=== PATIENT | male | born 1930 | race Caucasian/White ===

== ENCOUNTER 2017-07-27 14:09 | Emergency (ER) | payer OTHER ==
[~2017-07-27] VITALS: Ht 170.2 cm; Wt 109.1 kg
[~2017-07-27 14:09] MED LIST: ACET-75 PO; AMLO5TAB PO; ASPI-611 PO; AZELASTINE NS; CHOL10002 PO; METO25TA6 PO; NAPR375T5 PO; NITR0.4T48 SL; OMEP20CA10 PO; POTA8TAB8 PO; VALS80TA2 PO
[2017-07-27] MEDS ORDERED: ondansetron 4mg rapidly disintigrating tab PO ONE (16:35)
[2017-07-27] MEDS ORDERED: acetaminophen 325mg tablet PO ONE (16:40)
[2017-07-27] MEDS ORDERED: ONDA8TAB9 PO (16:41)
[2017-07-27 17:32] VITALS: BP 143/66
== END 2017-07-27 17:35 | disposition home or self-care (01) ==
LOC: ER 14:11
DX: J11.1 Influenza due to unidentified influenza virus with other respiratory manifestations (principal); I10 Essential (primary) hypertension; Z98.890 Other specified postprocedural states; Z79.82 Long term (current) use of aspirin; Z79.899 Other long term (current) drug therapy; Z88.0 Allergy status to penicillin; Z88.5 Allergy status to narcotic agent
CPT/HCPCS: 87502; 87503; 99284

== ENCOUNTER 2018-05-06 21:16 | Inpatient (IN) | payer OTHER ==
[~2018-05-06] VITALS: Ht 172.7 cm; Wt 94.1 kg
[~2018-05-06 21:16] MED LIST changes: +ONDA8TAB9 PO
[2018-05-06] MEDS ORDERED: ondansetron/PF 4mg/2ml inj IV ONE (22:05)
[2018-05-06] MEDS ORDERED: morphine 4 MG/ML inj SYRINge IV ONE (22:05)
[2018-05-06] MEDS ORDERED: normal saline 1000ML IV soln IVB ONE (22:05)
[2018-05-06] MEDS ORDERED: morphine 2 MG/ML inj. syringe IV PRN (22:05)
[2018-05-06 22:39] LABS: BASOPHILS % (AUTO) 0.1 % (0-1); EOSINOPHILS # (AUTO) 0.1 X10'3 (0-0.9); EOSINOPHILS % (AUTO) 0.7 % (0-6); HEMOGLOBIN 14.4 g/dl (14.0-17.9); LYMPHOCYTES # (AUTO) 1.9 X10'3 (1.1-4.8); LYMPHOCYTES % (AUTO) 10.9 % (21-51); MEAN CORPUSCULAR HEMOGLOBIN 30.2 PG (27.0-31.0); MEAN CORPUSCULAR HGB CONC 32.7 % (33.0-36.5); MEAN CORPUSCULAR VOLUME 92.3 FL (78-98); MONOCYTES # (AUTO) 0.4 X10'3 (0-0.9); MONOCYTES % (AUTO) 2.3 % (2-12); NEUTROPHILS # (AUTO) 14.9 X10'3 (1.8-7.7); PLATELET COUNT 217 X10'3 (140-440); RED BLOOD COUNT 4.77 X10'6 (4.70-6.10); WHITE BLOOD COUNT 17.3 X10'3 (4.5-11.0)
[2018-05-06 22:55] LABS: ALANINE AMINOTRANSFERASE 20 U/L (12-78); ALBUMIN 3.6 G/DL (3.4-5.0); ALBUMIN/GLOBULIN RATIO 1.1 (1.1-1.5); ALKALINE PHOSPHATASE 101 IU/L (46-116); ANION GAP 9 (8-16); ASPARTATE AMINO TRANSFERASE 16 U/L (10-37); BILIRUBIN,TOTAL 0.5 MG/DL (0.1-1.0); BLOOD UREA NITROGEN 17 MG/DL (7-18); BUN/CREATININE RATIO 15.2 (5.4-32.0); C-REACTIVE PROTEIN 0.22 MG/DL (0.0-0.5); CALCIUM 8.3 MG/DL (8.5-10.1); CHLORIDE 105 MMOL/L (99-107); CREATININE 1.12 MG/DL (0.60-1.10); GLUCOSE 130 MG/DL (70-104); POTASSIUM 3.8 MMOL/L (3.5-5.1); SODIUM 140 MMOL/L (135-145); TOTAL CARBON DIOXIDE 25.8 MMOL/L (24-32); TOTAL PROTEIN 6.8 G/DL (6.4-8.2); eGFR 62 ML/MIN
[2018-05-06 23:00] LABS: PROTHROMBIN TIME 10.7 SECONDS (9.0-12.0)
[2018-05-06] MEDS ORDERED: vancomycin/NS 1 GM ADD-VANTAGE 250 ML IV ONE (23:35)
[2018-05-07 00:34] LABS: CLARITY,URINE CLEAR (Clear); COLOR,URINE YELLOW (Yellow); GLUCOSE, URINE NEGATIVE (Neg); KETONES,URINE NEGATIVE (Neg); LEUKOCYTE ESTERASE ,URINE NEGATIVE (Neg); NITRITES, URINE NEGATIVE (Neg); OCCULT BLOOD,URINE TRACE-INTACT (Neg); PROTEIN,URINE NEGATIVE (Neg); UROBILINOGEN,URINE 0.2 E.U/dL (0.2-1.0)
[2018-05-07 00:39] LABS: UA COLLECTION TYPE URINAL
[2018-05-07 00:43] LABS: BACTERIA,URINE NONE SEEN /HPF (Neg); SQUAMOUS EPITHELIAL CELL,UR FEW /LPF (FEW); WBC,URINE NONE SEEN /HPF (0-4)
[2018-05-07] MEDS ORDERED: CLIN300C85 PO (01:43)
[2018-05-07] MEDS ORDERED: normal saline 1000ML IV soln IVB ONE ×2 (02:00)
[2018-05-07] MEDS ORDERED: acetaminophen 325mg tablet PO ONE (02:10)
[2018-05-07] MEDS ORDERED: PRAV80TA3 PO (02:26)
[2018-05-07] MEDS ORDERED: METO25TA6 PO (02:26)
[2018-05-07] MEDS ORDERED: mag hydrox/Alum hydrox/simeth 30ml oral suspension PO PRN (03:00)
[2018-05-07] MEDS ORDERED: magnesium 4gm in 100ml NS 100 ML IV PRN (03:00)
[2018-05-07] MEDS ORDERED: ondansetron/PF 4mg/2ml inj IV PRN (03:00)
[2018-05-07] MEDS ORDERED: morphine 2 MG/ML inj. syringe IV PRN ×2 (03:00)
[2018-05-07] MEDS ORDERED: ondansetron 4mg rapidly disintigrating tab PO PRN (03:00)
[2018-05-07] MEDS ORDERED: magnesium 1gm/100ml D5W IVPB 100 ML IV PRN (03:00)
[2018-05-07] MEDS ORDERED: docusate sod 100mg capsule PO PRN (03:00)
[2018-05-07] MEDS ORDERED: potassium Cl 40MEQ/NS 500ml 500 ML IV PRN ×2 (03:00)
[2018-05-07] MEDS ORDERED: potassium Cl 20 mEq SR tablet PO PRN (03:00)
[2018-05-07] MEDS: normal saline 1000ml 1,000 ML IV SCH ×3 (04:50→16:38)
[2018-05-07 05:42] LABS: BASOPHILS % (AUTO) 0 % (0-1); EOSINOPHILS % (AUTO) 0 % (0-6); HEMATOCRIT 39.4 % (42.0-52.0); LYMPHOCYTES # (AUTO) 0.5 X10'3 (1.1-4.8); MEAN CORPUSCULAR HEMOGLOBIN 30.2 PG (27.0-31.0); MEAN CORPUSCULAR VOLUME 91.6 FL (78-98); MEAN PLATELET VOLUME 9.7 FL (7.4-10.4); MONOCYTES # (AUTO) 1.6 X10'3 (0-0.9); MONOCYTES % (AUTO) 6.5 % (2-12); NEUTROPHILS # (AUTO) 22.4 X10'3 (1.8-7.7); NEUTROPHILS % (AUTO) 91.5 % (42-75); PLATELET COUNT 195 X10'3 (140-440); RED CELL DISTRIBUTION WIDTH 13.1 % (11.5-14.5); WHITE BLOOD COUNT 24.5 X10'3 (4.5-11.0)
[2018-05-07 05:53] LABS: CHOL/HDL RATIO 2.3 (0.00-4.99); CHOLESTEROL 108 MG/DL (0-200); HDL CHOLESTEROL 46 MG/DL (35-60); LDL CHOLESTEROL 58 MG/DL (50-100); TRIGLYCERIDES 24 MG/DL (20-135); TROPONIN I < 0.04 NG/ML (0.0-0.05)
[2018-05-07] MEDS: K and/or MAG REPLACEMENT MC SCH (08:00)
[2018-05-07 08:04] VITALS: BP 145/72
[2018-05-07] MEDS: atorvastatin 20mg tablet PO SCH (08:33)
[2018-05-07] MEDS: pantoprazole 40mg Tablet.DR PO SCH (08:34)
[2018-05-07] MEDS: vitamin D (cholecalciferol) 1,000 unit tablet PO SCH (08:34)
[2018-05-07] MEDS: losartan 50mg tablet PO SCH (08:34)
[2018-05-07] MEDS: metoprolol tartrate 25mg tablet PO SCH ×2 (08:35→19:45)
[2018-05-07] MEDS: enoxaparin 40mg/0.4ml syringe SQ SCH (08:35)
[2018-05-07 11:00] VITALS: BP 153/81
[2018-05-07] MEDS: levoFLOXACIN 750MG TABLET PO SCH (11:41)
[2018-05-07] MEDS: vancomycin inj 1,250 MG in normal saline 250ml IV soln 250 ML IV SCH ×2 (11:43→23:06)
[2018-05-07] MEDS: lactobacillus rhamnosus 10,000 MMU CELLS/CAPSULE PO SCH (19:45)
[2018-05-07 20:00] VITALS: BP 103/45
[2018-05-07] MEDS: acetaminophen 325mg tablet PO PRN (22:07)
[2018-05-08] VITALS: BP 106/51
[2018-05-08] MEDS: normal saline 1000ml 1,000 ML IV SCH ×2 (03:49→19:31)
[2018-05-08 05:34] LABS: BASOPHILS % (AUTO) 0.1 % (0-1); EOSINOPHILS % (AUTO) 0 % (0-6); HEMATOCRIT 40.5 % (42.0-52.0); HEMOGLOBIN 13.3 g/dl (14.0-17.9); LYMPHOCYTES # (AUTO) 1.8 X10'3 (1.1-4.8); LYMPHOCYTES % (AUTO) 6.4 % (21-51); MEAN CORPUSCULAR HEMOGLOBIN 30.3 PG (27.0-31.0); MEAN CORPUSCULAR HGB CONC 32.9 % (33.0-36.5); MEAN CORPUSCULAR VOLUME 92.2 FL (78-98); MEAN PLATELET VOLUME 10.3 FL (7.4-10.4); MONOCYTES # (AUTO) 1.7 X10'3 (0-0.9); MONOCYTES % (AUTO) 6.1 % (2-12); NEUTROPHILS # (AUTO) 24.6 X10'3 (1.8-7.7); NEUTROPHILS % (AUTO) 87.4 % (42-75); PLATELET COUNT 190 X10'3 (140-440); RED CELL DISTRIBUTION WIDTH 13.6 % (11.5-14.5)
[2018-05-08 05:42] LABS: WHITE BLOOD COUNT 28.2 X10'3 (4.5-11.0)
[2018-05-08 06:17] LABS: ALANINE AMINOTRANSFERASE 17 U/L (12-78); ALBUMIN 2.6 G/DL (3.4-5.0); ALBUMIN/GLOBULIN RATIO 0.8 (1.1-1.5); ALKALINE PHOSPHATASE 79 IU/L (46-116); ANION GAP 10 (8-16); ASPARTATE AMINO TRANSFERASE 43 U/L (10-37); BLOOD UREA NITROGEN 17 MG/DL (7-18); BUN/CREATININE RATIO 17.5 (5.4-32.0); CALCIUM 7.9 MG/DL (8.5-10.1); CHLORIDE 106 MMOL/L (99-107); CREATININE 0.97 MG/DL (0.60-1.10); GLUCOSE 96 MG/DL (70-104); MAGNESIUM 1.8 MG/DL (1.5-2.4); POTASSIUM 3.3 MMOL/L (3.5-5.1); SODIUM 140 MMOL/L (135-145); TOTAL CARBON DIOXIDE 23.8 MMOL/L (24-32); TOTAL PROTEIN 5.9 G/DL (6.4-8.2); eGFR 73 ML/MIN
[2018-05-08 06:24] LABS: PLATELET ESTIMATE NORMAL; TOTAL CELLS COUNTED 100
[2018-05-08 07:31] VITALS: BP 142/78
[2018-05-08] MEDS: K and/or MAG REPLACEMENT MC SCH (08:00)
[2018-05-08] MEDS: metoprolol tartrate 25mg tablet PO SCH ×2 (08:22→19:31)
[2018-05-08] MEDS: lactobacillus rhamnosus 10,000 MMU CELLS/CAPSULE PO SCH ×2 (08:22→19:31)
[2018-05-08] MEDS: enoxaparin 40mg/0.4ml syringe SQ SCH (08:22)
[2018-05-08] MEDS: pantoprazole 40mg Tablet.DR PO SCH (08:28)
[2018-05-08] MEDS: losartan 50mg tablet PO SCH (08:28)
[2018-05-08] MEDS: potassium Cl 20 mEq SR tablet PO PRN (08:33)
[2018-05-08] MEDS: atorvastatin 20mg tablet PO SCH (08:34)
[2018-05-08] MEDS: vitamin D (cholecalciferol) 1,000 unit tablet PO SCH (08:34)
[2018-05-08 10:17] VITALS: BP 144/68
[2018-05-08] MEDS: clindamycin 600mg/D5W 50ml 50 ML IV SCH ×3 (11:15→19:32)
[2018-05-08] MEDS: levoFLOXACIN 750MG TABLET PO SCH (11:16)
[2018-05-08 11:45] VITALS: BP 143/68
[2018-05-08] MEDS: vancomycin inj 1,250 MG in normal saline 250ml IV soln 250 ML IV SCH (12:42)
[2018-05-08] MEDS: CefTRIAXone 2gm/D5W 50ml 50 ML IV SCH (15:59)
[2018-05-08 20:00] VITALS: BP 127/59
[2018-05-08] MEDS: acetaminophen 325mg tablet PO PRN (20:05)
[2018-05-08] MEDS ORDERED: VANCOMYCIN LEVEL IV ONE (22:30)
[2018-05-09] VITALS: BP 107/52
[2018-05-09] MEDS: clindamycin 600mg/D5W 50ml 50 ML IV SCH ×4 (02:00→20:46)
[2018-05-09] MEDS: potassium Cl 20 mEq SR tablet PO PRN (02:02)
[2018-05-09] MEDS: normal saline 1000ml 1,000 ML IV SCH ×3 (05:31→17:43)
[2018-05-09 06:21] LABS: BASOPHILS % (AUTO) 0 % (0-1); EOSINOPHILS # (AUTO) 0.1 X10'3 (0-0.9); EOSINOPHILS % (AUTO) 0.5 % (0-6); HEMATOCRIT 37.8 % (42.0-52.0); HEMOGLOBIN 12.5 g/dl (14.0-17.9); LYMPHOCYTES # (AUTO) 1.4 X10'3 (1.1-4.8); LYMPHOCYTES % (AUTO) 6.2 % (21-51); MEAN CORPUSCULAR HEMOGLOBIN 30.3 PG (27.0-31.0); MEAN CORPUSCULAR HGB CONC 33.1 % (33.0-36.5); MEAN CORPUSCULAR VOLUME 91.6 FL (78-98); MEAN PLATELET VOLUME 10.4 FL (7.4-10.4); MONOCYTES # (AUTO) 1.4 X10'3 (0-0.9); NEUTROPHILS # (AUTO) 19.7 X10'3 (1.8-7.7); NEUTROPHILS % (AUTO) 87.3 % (42-75); PLATELET COUNT 164 X10'3 (140-440); RED BLOOD COUNT 4.12 X10'6 (4.70-6.10); RED CELL DISTRIBUTION WIDTH 13.7 % (11.5-14.5); WHITE BLOOD COUNT 22.5 X10'3 (4.5-11.0)
[2018-05-09 06:49] LABS: ALANINE AMINOTRANSFERASE 19 U/L (12-78); ALBUMIN 2.3 G/DL (3.4-5.0); ALBUMIN/GLOBULIN RATIO 0.7 (1.1-1.5); ALKALINE PHOSPHATASE 71 IU/L (46-116); ANION GAP 11 (8-16); ASPARTATE AMINO TRANSFERASE 31 U/L (10-37); BILIRUBIN,TOTAL 0.8 MG/DL (0.1-1.0); BLOOD UREA NITROGEN 18 MG/DL (7-18); BUN/CREATININE RATIO 21.2 (5.4-32.0); CHLORIDE 106 MMOL/L (99-107); CREATININE 0.85 MG/DL (0.60-1.10); GLUCOSE 105 MG/DL (70-104); MAGNESIUM 1.8 MG/DL (1.5-2.4); POTASSIUM 3.5 MMOL/L (3.5-5.1); SODIUM 140 MMOL/L (135-145); TOTAL PROTEIN 5.5 G/DL (6.4-8.2); eGFR 85 ML/MIN
[2018-05-09 07:30] VITALS: BP 119/83
[2018-05-09] MEDS: K and/or MAG REPLACEMENT MC SCH (08:00)
[2018-05-09] MEDS: CefTRIAXone 2gm/D5W 50ml 50 ML IV SCH (08:03)
[2018-05-09] MEDS: metoprolol tartrate 25mg tablet PO SCH ×2 (08:05→20:49)
[2018-05-09] MEDS: vitamin D (cholecalciferol) 1,000 unit tablet PO SCH (08:06)
[2018-05-09] MEDS: pantoprazole 40mg Tablet.DR PO SCH (08:06)
[2018-05-09] MEDS: atorvastatin 20mg tablet PO SCH (08:06)
[2018-05-09] MEDS: enoxaparin 40mg/0.4ml syringe SQ SCH (08:07)
[2018-05-09] MEDS: losartan 50mg tablet PO SCH (08:07)
[2018-05-09] MEDS: lactobacillus rhamnosus 10,000 MMU CELLS/CAPSULE PO SCH ×2 (08:07→20:49)
[2018-05-09 12:51] VITALS: BP 134/57
[2018-05-09 20:00] VITALS: BP 129/63
[2018-05-10] VITALS: BP 132/61
[2018-05-10] MEDS: clindamycin 600mg/D5W 50ml 50 ML IV SCH ×4 (01:38→20:44)
[2018-05-10] MEDS: normal saline 1000ml 1,000 ML IV SCH ×2 (04:19→14:42)
[2018-05-10 04:49] LABS: ALANINE AMINOTRANSFERASE 17 U/L (12-78); ALBUMIN/GLOBULIN RATIO 0.6 (1.1-1.5); ALKALINE PHOSPHATASE 68 IU/L (46-116); ANION GAP 7 (8-16); ASPARTATE AMINO TRANSFERASE 23 U/L (10-37); BILIRUBIN,TOTAL 0.7 MG/DL (0.1-1.0); BLOOD UREA NITROGEN 19 MG/DL (7-18); BUN/CREATININE RATIO 21.3 (5.4-32.0); CALCIUM 7.7 MG/DL (8.5-10.1); CHLORIDE 107 MMOL/L (99-107); CREATININE 0.89 MG/DL (0.60-1.10); GLUCOSE 111 MG/DL (70-104); MAGNESIUM 1.9 MG/DL (1.5-2.4); POTASSIUM 3.1 MMOL/L (3.5-5.1); SODIUM 139 MMOL/L (135-145); TOTAL CARBON DIOXIDE 24.8 MMOL/L (24-32); TOTAL PROTEIN 5.1 G/DL (6.4-8.2); eGFR 81 ML/MIN
[2018-05-10 06:47] LABS: BASOPHILS % (AUTO) 0 % (0-1); EOSINOPHILS # (AUTO) 0.1 X10'3 (0-0.9); EOSINOPHILS % (AUTO) 0.8 % (0-6); HEMATOCRIT 35.6 % (42.0-52.0); HEMOGLOBIN 11.7 g/dl (14.0-17.9); LYMPHOCYTES # (AUTO) 1.2 X10'3 (1.1-4.8); LYMPHOCYTES % (AUTO) 7.1 % (21-51); MEAN CORPUSCULAR HEMOGLOBIN 30.2 PG (27.0-31.0); MEAN CORPUSCULAR HGB CONC 32.9 % (33.0-36.5); MEAN PLATELET VOLUME 10.1 FL (7.4-10.4); MONOCYTES # (AUTO) 1.5 X10'3 (0-0.9); MONOCYTES % (AUTO) 8.4 % (2-12); NEUTROPHILS # (AUTO) 14.4 X10'3 (1.8-7.7); NEUTROPHILS % (AUTO) 83.7 % (42-75); PLATELET COUNT 171 X10'3 (140-440); RED BLOOD COUNT 3.87 X10'6 (4.70-6.10); RED CELL DISTRIBUTION WIDTH 13.3 % (11.5-14.5); WHITE BLOOD COUNT 17.3 X10'3 (4.5-11.0)
[2018-05-10 07:19] VITALS: BP 132/54
[2018-05-10] MEDS: K and/or MAG REPLACEMENT MC SCH (08:00)
[2018-05-10] MEDS: pantoprazole 40mg Tablet.DR PO SCH (08:21)
[2018-05-10] MEDS: enoxaparin 40mg/0.4ml syringe SQ SCH (08:22)
[2018-05-10] MEDS: vitamin D (cholecalciferol) 1,000 unit tablet PO SCH (08:22)
[2018-05-10] MEDS: atorvastatin 20mg tablet PO SCH (08:23)
[2018-05-10] MEDS: metoprolol tartrate 25mg tablet PO SCH ×2 (08:23→20:44)
[2018-05-10] MEDS: lactobacillus rhamnosus 10,000 MMU CELLS/CAPSULE PO SCH ×2 (08:23→20:44)
[2018-05-10] MEDS: losartan 50mg tablet PO SCH (08:23)
[2018-05-10] MEDS ORDERED: potassium Cl 40MEQ/NS 500ml 500 ML IV PRN ×2 (09:30)
[2018-05-10] MEDS ORDERED: magnesium Cl slow-release 64mg tablet PO PRN (09:30)
[2018-05-10] MEDS ORDERED: magnesium 4gm in 100ml NS 100 ML IV PRN (09:30)
[2018-05-10] MEDS ORDERED: potassium Cl 20 mEq SR tablet PO PRN (09:30)
[2018-05-10] MEDS: CefTRIAXone 2gm/D5W 50ml 50 ML IV SCH (09:32)
[2018-05-10] MEDS: potassium Cl 20 mEq SR tablet PO PRN ×3 (09:36→20:44)
[2018-05-10] MEDS ORDERED: HYDROcodone/acetaminophen 5mg/325mg tablet PO PRN (12:25)
[2018-05-10 12:46] VITALS: BP 136/54
[2018-05-10 19:45] VITALS: BP 148/65
[2018-05-10] MEDS: acetaminophen 325mg tablet PO PRN (20:43)
[2018-05-11] VITALS: BP 147/61
[2018-05-11] MEDS: clindamycin 600mg/D5W 50ml 50 ML IV SCH ×4 (02:01→21:42)
[2018-05-11 05:14] LABS: BASOPHILS % (AUTO) 0 % (0-1); EOSINOPHILS # (AUTO) 0.3 X10'3 (0-0.9); EOSINOPHILS % (AUTO) 1.9 % (0-6); HEMATOCRIT 36.2 % (42.0-52.0); LYMPHOCYTES # (AUTO) 1.4 X10'3 (1.1-4.8); LYMPHOCYTES % (AUTO) 8.7 % (21-51); MEAN CORPUSCULAR HEMOGLOBIN 30.5 PG (27.0-31.0); MEAN CORPUSCULAR HGB CONC 33.3 % (33.0-36.5); MEAN CORPUSCULAR VOLUME 91.7 FL (78-98); MEAN PLATELET VOLUME 9.9 FL (7.4-10.4); MONOCYTES # (AUTO) 1.4 X10'3 (0-0.9); NEUTROPHILS # (AUTO) 12.7 X10'3 (1.8-7.7); NEUTROPHILS % (AUTO) 80.4 % (42-75); PLATELET COUNT 190 X10'3 (140-440); RED BLOOD COUNT 3.94 X10'6 (4.70-6.10); RED CELL DISTRIBUTION WIDTH 13.5 % (11.5-14.5); WHITE BLOOD COUNT 15.7 X10'3 (4.5-11.0)
[2018-05-11 05:21] LABS: ALANINE AMINOTRANSFERASE 23 U/L (12-78); ALBUMIN 2.2 G/DL (3.4-5.0); ALBUMIN/GLOBULIN RATIO 0.6 (1.1-1.5); ALKALINE PHOSPHATASE 84 IU/L (46-116); ANION GAP 9 (8-16); ASPARTATE AMINO TRANSFERASE 24 U/L (10-37); BILIRUBIN,TOTAL 0.9 MG/DL (0.1-1.0); BLOOD UREA NITROGEN 16 MG/DL (7-18); CALCIUM 7.5 MG/DL (8.5-10.1); CHLORIDE 107 MMOL/L (99-107); GLUCOSE 101 MG/DL (70-104); MAGNESIUM 1.9 MG/DL (1.5-2.4); POTASSIUM 3.3 MMOL/L (3.5-5.1); SODIUM 139 MMOL/L (135-145); TOTAL CARBON DIOXIDE 22.6 MMOL/L (24-32); TOTAL PROTEIN 5.6 G/DL (6.4-8.2); eGFR > 90 ML/MIN
[2018-05-11] MEDS: losartan 50mg tablet PO SCH (07:15)
[2018-05-11] MEDS: vitamin D (cholecalciferol) 1,000 unit tablet PO SCH (07:15)
[2018-05-11] MEDS: pantoprazole 40mg Tablet.DR PO SCH (07:15)
[2018-05-11] MEDS: atorvastatin 20mg tablet PO SCH (07:15)
[2018-05-11] MEDS: metoprolol tartrate 25mg tablet PO SCH ×2 (07:15→21:32)
[2018-05-11] MEDS: potassium Cl 20 mEq SR tablet PO PRN ×3 (07:15→16:28)
[2018-05-11] MEDS: lactobacillus rhamnosus 10,000 MMU CELLS/CAPSULE PO SCH ×2 (07:15→21:29)
[2018-05-11] MEDS: enoxaparin 40mg/0.4ml syringe SQ SCH (07:17)
[2018-05-11] MEDS: CefTRIAXone 2gm/D5W 50ml 50 ML IV SCH (07:17)
[2018-05-11 07:49] VITALS: BP 158/74
[2018-05-11] MEDS: K and/or MAG REPLACEMENT MC SCH (08:00)
[2018-05-11] MEDS: acetaminophen 325mg tablet PO PRN ×2 (09:28→21:41)
[2018-05-11] MEDS: normal saline 1000ml 1,000 ML IV SCH (11:38)
[2018-05-11 12:00] VITALS: BP 124/61
[2018-05-11] MEDS ORDERED: normal saline 1000ml 1,000 ML IV ONE ×2 (12:00→12:15)
[2018-05-11] MEDS: polyvinyl alcohol ophthalmic drops 15ml bottle EACHEYE SCH ×3 (13:19→20:00)
[2018-05-11] MEDS ORDERED: folic acid 1mg tablet PO ONE (15:05)
[2018-05-11] MEDS ORDERED: thiamine 100mg/ml 2ml inj. IV ONE (15:05)
[2018-05-11] MEDS ORDERED: thiamine inj. 100 MG in normal saline 100ml IV soln 100 ML IV ONE (15:25)
[2018-05-11] MEDS ORDERED: LORazepam 1 MG tablet PO PRN (15:30)
[2018-05-11] MEDS ORDERED: haloperidol lactate 5mg/ml inj IM PRN (15:30)
[2018-05-11] MEDS ORDERED: haloperidol 5mg tablet PO PRN (15:30)
[2018-05-11 19:00] VITALS: BP 163/77
[2018-05-11 21:15] VITALS: BP 140/65
[2018-05-12] VITALS (12 sets, daily range): BP systolic 101–179; BP diastolic 58–83
[2018-05-12] MEDS: LORazepam 2 mg/ml vial IV PRN ×3 (01:56→16:30)
[2018-05-12] MEDS: clindamycin 600mg/D5W 50ml 50 ML IV SCH ×4 (01:56→21:01)
[2018-05-12] MEDS: polyvinyl alcohol ophthalmic drops 15ml bottle EACHEYE SCH ×6 (04:00→21:02)
[2018-05-12 05:35] LABS: BASOPHILS # (AUTO) 0.1 X10'3 (0-0.2); BASOPHILS % (AUTO) 0.3 % (0-1); EOSINOPHILS # (AUTO) 0.5 X10'3 (0-0.9); EOSINOPHILS % (AUTO) 3.5 % (0-6); HEMATOCRIT 36.6 % (42.0-52.0); HEMOGLOBIN 12.1 g/dl (14.0-17.9); LYMPHOCYTES # (AUTO) 1.7 X10'3 (1.1-4.8); LYMPHOCYTES % (AUTO) 11.1 % (21-51); MEAN CORPUSCULAR HEMOGLOBIN 30.6 PG (27.0-31.0); MEAN CORPUSCULAR VOLUME 92.6 FL (78-98); MEAN PLATELET VOLUME 9.5 FL (7.4-10.4); MONOCYTES # (AUTO) 1.6 X10'3 (0-0.9); MONOCYTES % (AUTO) 10.3 % (2-12); NEUTROPHILS # (AUTO) 11.6 X10'3 (1.8-7.7); NEUTROPHILS % (AUTO) 74.8 % (42-75); PLATELET COUNT 224 X10'3 (140-440); RED BLOOD COUNT 3.95 X10'6 (4.70-6.10); RED CELL DISTRIBUTION WIDTH 13.4 % (11.5-14.5); WHITE BLOOD COUNT 15.6 X10'3 (4.5-11.0)
[2018-05-12 05:58] LABS: ALANINE AMINOTRANSFERASE 31 U/L (12-78); ALBUMIN 2.1 G/DL (3.4-5.0); ALBUMIN/GLOBULIN RATIO 0.6 (1.1-1.5); ALKALINE PHOSPHATASE 92 IU/L (46-116); ANION GAP 10 (8-16); ASPARTATE AMINO TRANSFERASE 27 U/L (10-37); BILIRUBIN,TOTAL 0.6 MG/DL (0.1-1.0); BLOOD UREA NITROGEN 12 MG/DL (7-18); BUN/CREATININE RATIO 15.4 (5.4-32.0); CALCIUM 7.4 MG/DL (8.5-10.1); CHLORIDE 107 MMOL/L (99-107); CREATININE 0.78 MG/DL (0.60-1.10); GLUCOSE 97 MG/DL (70-104); MAGNESIUM 1.9 MG/DL (1.5-2.4); POTASSIUM 3.5 MMOL/L (3.5-5.1); SODIUM 140 MMOL/L (135-145); TOTAL CARBON DIOXIDE 23.1 MMOL/L (24-32); TOTAL PROTEIN 5.6 G/DL (6.4-8.2); eGFR > 90 ML/MIN
[2018-05-12] MEDS: K and/or MAG REPLACEMENT MC SCH (07:29)
[2018-05-12] MEDS: CefTRIAXone 2gm/D5W 50ml 50 ML IV SCH (07:32)
[2018-05-12] MEDS: metoprolol tartrate 25mg tablet PO SCH ×2 (07:57→20:00)
[2018-05-12] MEDS: atorvastatin 20mg tablet PO SCH (07:58)
[2018-05-12] MEDS: folic acid 1mg tablet PO SCH (07:58)
[2018-05-12] MEDS: losartan 50mg tablet PO SCH (07:58)
[2018-05-12] MEDS: pantoprazole 40mg Tablet.DR PO SCH (07:58)
[2018-05-12] MEDS: lactobacillus rhamnosus 10,000 MMU CELLS/CAPSULE PO SCH ×2 (07:58→20:00)
[2018-05-12] MEDS: multivitamins, therapeutics tablet PO SCH (07:58)
[2018-05-12] MEDS: vitamin D (cholecalciferol) 1,000 unit tablet PO SCH (07:58)
[2018-05-12] MEDS: enoxaparin 40mg/0.4ml syringe SQ SCH (07:59)
[2018-05-12] MEDS: furosemide 40mg/4ml inj IV SCH ×2 (09:35→21:02)
[2018-05-12 09:46] LABS: ABG BASE EXCESS -5.1 mmol/L (-2.0-3.0); ABG HCO3 18.5 mmol/L (22.0-26.0); ABG OXYGEN SATURATION 96.7 % (95-98); ABG PCO2 (T) 30.4 mmHg (35.0-48.0); ABG PH (T) 7.403 (7.350-7.450); ABG PO2 (T) 86.1 mmHg (83-108); ALLEN'S TEST Positive; FCOHb 0.7 % (0.5-1.5); FLOW 3 L/min; FMetHb 0.2 % (0.3-1.12); FO2Hb 95.8 % (94-100); TOTAL HEMOGLOBIN 13.1 G/dl (14.0-18.0)
[2018-05-12] MEDS: ipratropium/albuterol 3ml nebule NEB SCH ×3 (11:10→19:00)
[2018-05-12] MEDS ORDERED: diltiazem-NS 100mg/100ml 100 ML IV SCH (13:55)
[2018-05-12] MEDS ORDERED: methylPREDNISolone sod succ 125mg/2ml vial IV ONE (13:55)
[2018-05-12] MEDS ORDERED: furosemide 10 MG/1 ML 10ml inj IV ONE (14:00)
[2018-05-12] MEDS: heparin 25,000 UNIT/250ml bag 250 ML IV SCH ×2 (14:04→22:46)
[2018-05-12] MEDS ORDERED: heparin 10,000 units/1 ML INJ IV ONE (14:05)
[2018-05-12] MEDS ORDERED: heparin 10,000 units/1 ML INJ IV PRN (14:05)
[2018-05-12 15:12] LABS: BASOPHILS % (AUTO) 0.2 % (0-1); EOSINOPHILS # (AUTO) 0.5 X10'3 (0-0.9); EOSINOPHILS % (AUTO) 2.5 % (0-6); HEMOGLOBIN 13.9 g/dl (14.0-17.9); LYMPHOCYTES # (AUTO) 1.6 X10'3 (1.1-4.8); LYMPHOCYTES % (AUTO) 8.9 % (21-51); MEAN CORPUSCULAR HEMOGLOBIN 30.4 PG (27.0-31.0); MEAN CORPUSCULAR HGB CONC 33.2 % (33.0-36.5); MEAN CORPUSCULAR VOLUME 91.6 FL (78-98); MONOCYTES # (AUTO) 1.6 X10'3 (0-0.9); MONOCYTES % (AUTO) 8.9 % (2-12); NEUTROPHILS # (AUTO) 14.2 X10'3 (1.8-7.7); NEUTROPHILS % (AUTO) 79.5 % (42-75); PLATELET COUNT 259 X10'3 (140-440); RED BLOOD COUNT 4.58 X10'6 (4.70-6.10); RED CELL DISTRIBUTION WIDTH 13.1 % (11.5-14.5); WHITE BLOOD COUNT 17.8 X10'3 (4.5-11.0)
[2018-05-12 15:24] LABS: INR 1.1 INR; PARTIAL THROMBOPLASTIN TIME 38 SECONDS (22-32); PROTHROMBIN TIME 10.7 SECONDS (9.0-12.0)
[2018-05-12] MEDS: lactose-reduced food (Ensure Enlive) - 237ml bottle PO SCH (18:00)
[2018-05-12] MEDS: methylPREDNISolone sod succ/PF 40mg inj. IV SCH (21:02)
[2018-05-13] VITALS (9 sets, daily range): BP systolic 90–124; BP diastolic 53–75
[2018-05-13] MEDS: ipratropium/albuterol 3ml nebule NEB SCH ×7 (00:01→23:00)
[2018-05-13] MEDS: clindamycin 600mg/D5W 50ml 50 ML IV SCH ×4 (02:02→20:21)
[2018-05-13] MEDS: methylPREDNISolone sod succ/PF 40mg inj. IV SCH ×3 (02:02→16:18)
[2018-05-13] MEDS: polyvinyl alcohol ophthalmic drops 15ml bottle EACHEYE SCH ×6 (04:00→20:20)
[2018-05-13] MEDS ORDERED: diltiazem-NS 100mg/100ml 100 ML IV SCH ×2 (04:40→13:55)
[2018-05-13 06:27] LABS: HEMATOCRIT 39.4 % (42.0-52.0); HEMOGLOBIN 13.2 g/dl (14.0-17.9); MEAN CORPUSCULAR HEMOGLOBIN 30.6 PG (27.0-31.0); MEAN CORPUSCULAR HGB CONC 33.5 % (33.0-36.5); MEAN CORPUSCULAR VOLUME 91.1 FL (78-98); PLATELET COUNT 146 X10'3 (140-440); RED BLOOD COUNT 4.33 X10'6 (4.70-6.10); RED CELL DISTRIBUTION WIDTH 13.2 % (11.5-14.5); WHITE BLOOD COUNT 15.7 X10'3 (4.5-11.0)
[2018-05-13 06:29] LABS: BANDS% (MANUAL) 1 % (0-10); LYMPHOCYTES % (MANUAL) 6 % (21-51); METAMYLEOCYTES% (MANUAL) 1 % (0-0); NEUTROPHILS % (MANUAL) 90 % (42-75); TOTAL CELLS COUNTED 100
[2018-05-13 06:31] LABS: MONOCYTES % (MANUAL) 2 % (2-12); PLATELET ESTIMATE NORMAL
[2018-05-13] MEDS: heparin 25,000 UNIT/250ml bag 250 ML IV SCH ×2 (07:57→14:21)
[2018-05-13] MEDS: K and/or MAG REPLACEMENT MC SCH (08:00)
[2018-05-13] MEDS: CefTRIAXone 2gm/D5W 50ml 50 ML IV SCH (08:00)
[2018-05-13] MEDS: lactose-reduced food (Ensure Enlive) - 237ml bottle PO SCH ×3 (08:00→18:00)
[2018-05-13] MEDS: furosemide 40mg/4ml inj IV SCH ×2 (08:01→20:20)
[2018-05-13] MEDS: metoprolol tartrate 25mg tablet PO SCH ×2 (08:23→20:20)
[2018-05-13] MEDS: lactobacillus rhamnosus 10,000 MMU CELLS/CAPSULE PO SCH ×2 (08:23→20:20)
[2018-05-13] MEDS: vitamin D (cholecalciferol) 1,000 unit tablet PO SCH (08:23)
[2018-05-13] MEDS: losartan 50mg tablet PO SCH (08:23)
[2018-05-13] MEDS: atorvastatin 20mg tablet PO SCH (08:23)
[2018-05-13] MEDS: multivitamins, therapeutics tablet PO SCH (08:24)
[2018-05-13] MEDS: pantoprazole 40mg Tablet.DR PO SCH (08:24)
[2018-05-13] MEDS: folic acid 1mg tablet PO SCH (08:24)
[2018-05-13] MEDS: apixaban 5mg tablet PO SCH (20:22)
[2018-05-14] MEDS: polyvinyl alcohol ophthalmic drops 15ml bottle EACHEYE SCH ×6 (00:48→20:36)
[2018-05-14] MEDS: methylPREDNISolone sod succ/PF 40mg inj. IV SCH ×3 (00:48→16:09)
[2018-05-14] MEDS: clindamycin 600mg/D5W 50ml 50 ML IV SCH ×4 (01:16→20:36)
[2018-05-14 03:00] VITALS: BP 121/60
[2018-05-14] MEDS: ipratropium/albuterol 3ml nebule NEB SCH ×2 (03:07→06:52)
[2018-05-14 05:59] LABS: BASOPHILS % (AUTO) 0.2 % (0-1); EOSINOPHILS # (AUTO) 0.3 X10'3 (0-0.9); EOSINOPHILS % (AUTO) 1.4 % (0-6); HEMATOCRIT 36.2 % (42.0-52.0); HEMOGLOBIN 11.9 g/dl (14.0-17.9); LYMPHOCYTES # (AUTO) 1.1 X10'3 (1.1-4.8); MEAN CORPUSCULAR HEMOGLOBIN 30.3 PG (27.0-31.0); MEAN CORPUSCULAR HGB CONC 32.9 % (33.0-36.5); MEAN CORPUSCULAR VOLUME 92.2 FL (78-98); MEAN PLATELET VOLUME 9.8 FL (7.4-10.4); MONOCYTES % (AUTO) 4.6 % (2-12); NEUTROPHILS # (AUTO) 19.9 X10'3 (1.8-7.7); NEUTROPHILS % (AUTO) 88.8 % (42-75); PLATELET COUNT 291 X10'3 (140-440); RED BLOOD COUNT 3.93 X10'6 (4.70-6.10); RED CELL DISTRIBUTION WIDTH 13.3 % (11.5-14.5); WHITE BLOOD COUNT 22.4 X10'3 (4.5-11.0)
[2018-05-14 06:00] VITALS: BP 136/68
[2018-05-14] MEDS: lactose-reduced food (Ensure Enlive) - 237ml bottle PO SCH ×3 (08:00→17:46)
[2018-05-14] MEDS: K and/or MAG REPLACEMENT MC SCH (08:00)
[2018-05-14] MEDS: lactobacillus rhamnosus 10,000 MMU CELLS/CAPSULE PO SCH ×2 (08:51→20:37)
[2018-05-14] MEDS: losartan 50mg tablet PO SCH (08:51)
[2018-05-14] MEDS: CefTRIAXone 2gm/D5W 50ml 50 ML IV SCH (08:51)
[2018-05-14] MEDS: apixaban 5mg tablet PO SCH ×2 (08:52→20:37)
[2018-05-14] MEDS: atorvastatin 20mg tablet PO SCH (08:52)
[2018-05-14] MEDS: multivitamins, therapeutics tablet PO SCH (08:52)
[2018-05-14] MEDS: metoprolol tartrate 25mg tablet PO SCH ×2 (08:52→20:37)
[2018-05-14] MEDS: pantoprazole 40mg Tablet.DR PO SCH (08:52)
[2018-05-14] MEDS: folic acid 1mg tablet PO SCH (08:52)
[2018-05-14] MEDS: vitamin D (cholecalciferol) 1,000 unit tablet PO SCH (08:53)
[2018-05-14] MEDS: furosemide 40mg/4ml inj IV SCH ×2 (09:07→20:36)
[2018-05-14] MEDS ORDERED: ipratropium/albuterol 3ml nebule NEB PRN (10:15)
[2018-05-14 11:00] VITALS: BP 145/73
[2018-05-14 15:00] VITALS: BP 137/71
[2018-05-14 19:00] VITALS: BP 122/94
[2018-05-14 23:00] VITALS: BP 146/75
[2018-05-15] MEDS: polyvinyl alcohol ophthalmic drops 15ml bottle EACHEYE SCH ×8 (00:03→23:21)
[2018-05-15] MEDS: methylPREDNISolone sod succ/PF 40mg inj. IV SCH ×4 (00:03→23:20)
[2018-05-15] MEDS: clindamycin 600mg/D5W 50ml 50 ML IV SCH ×4 (02:15→19:49)
[2018-05-15 03:00] VITALS: BP 133/70
[2018-05-15 05:53] LABS: BASOPHILS % (AUTO) 0 % (0-1); EOSINOPHILS % (AUTO) 0 % (0-6); HEMATOCRIT 37.1 % (42.0-52.0); HEMOGLOBIN 12.2 g/dl (14.0-17.9); LYMPHOCYTES # (AUTO) 1.2 X10'3 (1.1-4.8); LYMPHOCYTES % (AUTO) 6.5 % (21-51); MEAN CORPUSCULAR HEMOGLOBIN 30.2 PG (27.0-31.0); MEAN CORPUSCULAR HGB CONC 32.8 % (33.0-36.5); MEAN CORPUSCULAR VOLUME 92.1 FL (78-98); MEAN PLATELET VOLUME 9.5 FL (7.4-10.4); MONOCYTES # (AUTO) 0.8 X10'3 (0-0.9); MONOCYTES % (AUTO) 4.4 % (2-12); NEUTROPHILS # (AUTO) 16.2 X10'3 (1.8-7.7); NEUTROPHILS % (AUTO) 89.1 % (42-75); PLATELET COUNT 307 X10'3 (140-440); RED BLOOD COUNT 4.03 X10'6 (4.70-6.10); RED CELL DISTRIBUTION WIDTH 13.4 % (11.5-14.5); WHITE BLOOD COUNT 18.1 X10'3 (4.5-11.0)
[2018-05-15 06:00] VITALS: BP 112/66
[2018-05-15] MEDS: furosemide 40mg/4ml inj IV SCH ×2 (07:55→19:48)
[2018-05-15] MEDS: multivitamins, therapeutics tablet PO SCH (07:55)
[2018-05-15] MEDS: apixaban 5mg tablet PO SCH ×2 (07:55→19:48)
[2018-05-15] MEDS: pantoprazole 40mg Tablet.DR PO SCH (07:55)
[2018-05-15] MEDS: lactose-reduced food (Ensure Enlive) - 237ml bottle PO SCH ×3 (07:56→18:00)
[2018-05-15] MEDS: lactobacillus rhamnosus 10,000 MMU CELLS/CAPSULE PO SCH ×2 (07:56→19:48)
[2018-05-15] MEDS: vitamin D (cholecalciferol) 1,000 unit tablet PO SCH (07:56)
[2018-05-15] MEDS: losartan 50mg tablet PO SCH (07:56)
[2018-05-15] MEDS: atorvastatin 20mg tablet PO SCH (07:56)
[2018-05-15] MEDS: metoprolol tartrate 25mg tablet PO SCH ×2 (07:56→19:48)
[2018-05-15] MEDS: folic acid 1mg tablet PO SCH (07:56)
[2018-05-15] MEDS: K and/or MAG REPLACEMENT MC SCH (08:00)
[2018-05-15] MEDS: CefTRIAXone 2gm/D5W 50ml 50 ML IV SCH (09:25)
[2018-05-15] MEDS: normal saline 1000ml 1,000 ML IV SCH (09:26)
[2018-05-15 11:00] VITALS: BP 117/51
[2018-05-15 15:00] VITALS: BP 138/71
[2018-05-15 19:00] VITALS: BP 144/65
[2018-05-15 23:00] VITALS: BP 118/57
[2018-05-15] MEDS: acetaminophen 325mg tablet PO PRN (23:25)
[2018-05-16] MEDS: clindamycin 600mg/D5W 50ml 50 ML IV SCH ×4 (02:04→19:33)
[2018-05-16 03:00] VITALS: BP 134/65
[2018-05-16] MEDS: polyvinyl alcohol ophthalmic drops 15ml bottle EACHEYE SCH ×6 (04:00→23:46)
[2018-05-16 06:00] VITALS: BP 132/70
[2018-05-16 06:15] LABS: BASOPHILS # (AUTO) 0.1 X10'3 (0-0.2); BASOPHILS % (AUTO) 0.3 % (0-1); EOSINOPHILS # (AUTO) 0.2 X10'3 (0-0.9); EOSINOPHILS % (AUTO) 1.4 % (0-6); HEMATOCRIT 37.3 % (42.0-52.0); HEMOGLOBIN 12.5 g/dl (14.0-17.9); LYMPHOCYTES % (AUTO) 5.8 % (21-51); MEAN CORPUSCULAR HEMOGLOBIN 30.5 PG (27.0-31.0); MEAN CORPUSCULAR HGB CONC 33.5 % (33.0-36.5); MEAN PLATELET VOLUME 9.9 FL (7.4-10.4); MONOCYTES # (AUTO) 0.7 X10'3 (0-0.9); MONOCYTES % (AUTO) 4.4 % (2-12); NEUTROPHILS # (AUTO) 15.2 X10'3 (1.8-7.7); NEUTROPHILS % (AUTO) 88.1 % (42-75); PLATELET COUNT 317 X10'3 (140-440); RED CELL DISTRIBUTION WIDTH 13.3 % (11.5-14.5); WHITE BLOOD COUNT 17.2 X10'3 (4.5-11.0)
[2018-05-16] MEDS: CefTRIAXone 2gm/D5W 50ml 50 ML IV SCH (07:38)
[2018-05-16] MEDS: furosemide 40mg/4ml inj IV SCH ×2 (07:39→19:33)
[2018-05-16] MEDS: atorvastatin 20mg tablet PO SCH (07:39)
[2018-05-16] MEDS: lactobacillus rhamnosus 10,000 MMU CELLS/CAPSULE PO SCH ×2 (07:39→19:33)
[2018-05-16] MEDS: losartan 50mg tablet PO SCH (07:39)
[2018-05-16] MEDS: metoprolol tartrate 25mg tablet PO SCH ×2 (07:39→19:33)
[2018-05-16] MEDS: methylPREDNISolone sod succ/PF 40mg inj. IV SCH ×3 (07:39→19:34)
[2018-05-16] MEDS: multivitamins, therapeutics tablet PO SCH (07:39)
[2018-05-16] MEDS: vitamin D (cholecalciferol) 1,000 unit tablet PO SCH (07:39)
[2018-05-16] MEDS: apixaban 5mg tablet PO SCH ×2 (07:40→19:33)
[2018-05-16] MEDS: folic acid 1mg tablet PO SCH (07:40)
[2018-05-16] MEDS: pantoprazole 40mg Tablet.DR PO SCH (07:40)
[2018-05-16] MEDS: K and/or MAG REPLACEMENT MC SCH (07:40)
[2018-05-16] MEDS: lactose-reduced food (Ensure Enlive) - 237ml bottle PO SCH ×3 (08:19→18:00)
[2018-05-16 11:00] VITALS: BP_SYST 119; BP_SYST 132; BP_DIAS 59; BP_DIAS 70
[2018-05-16 15:00] VITALS: BP 121/61
[2018-05-16 19:00] VITALS: BP 110/62
[2018-05-16 23:00] VITALS: BP 127/65
[2018-05-17] MEDS: clindamycin 600mg/D5W 50ml 50 ML IV SCH ×4 (01:36→19:41)
[2018-05-17 03:00] VITALS: BP 126/63
[2018-05-17] MEDS: polyvinyl alcohol ophthalmic drops 15ml bottle EACHEYE SCH ×5 (04:00→19:41)
[2018-05-17 06:00] VITALS: BP 128/72
[2018-05-17 06:11] LABS: BASOPHILS % (AUTO) 0.1 % (0-1); EOSINOPHILS # (AUTO) 0.3 X10'3 (0-0.9); EOSINOPHILS % (AUTO) 1.4 % (0-6); HEMATOCRIT 38.9 % (42.0-52.0); HEMOGLOBIN 12.6 g/dl (14.0-17.9); LYMPHOCYTES # (AUTO) 1.2 X10'3 (1.1-4.8); LYMPHOCYTES % (AUTO) 6.1 % (21-51); MEAN CORPUSCULAR HEMOGLOBIN 29.9 PG (27.0-31.0); MEAN CORPUSCULAR HGB CONC 32.4 % (33.0-36.5); MEAN CORPUSCULAR VOLUME 92.4 FL (78-98); MEAN PLATELET VOLUME 9.6 FL (7.4-10.4); MONOCYTES # (AUTO) 1.1 X10'3 (0-0.9); MONOCYTES % (AUTO) 5.4 % (2-12); PLATELET COUNT 313 X10'3 (140-440); RED BLOOD COUNT 4.21 X10'6 (4.70-6.10); RED CELL DISTRIBUTION WIDTH 13.6 % (11.5-14.5); WHITE BLOOD COUNT 19.5 X10'3 (4.5-11.0)
[2018-05-17] MEDS: K and/or MAG REPLACEMENT MC SCH (08:00)
[2018-05-17] MEDS: CefTRIAXone 2gm/D5W 50ml 50 ML IV SCH (08:09)
[2018-05-17] MEDS: methylPREDNISolone sod succ/PF 40mg inj. IV SCH (08:10)
[2018-05-17] MEDS: furosemide 40mg/4ml inj IV SCH (08:14)
[2018-05-17] MEDS: normal saline 1000ml 1,000 ML IV SCH (08:25)
[2018-05-17] MEDS: multivitamins, therapeutics tablet PO SCH (08:29)
[2018-05-17] MEDS: vitamin D (cholecalciferol) 1,000 unit tablet PO SCH (08:29)
[2018-05-17] MEDS: losartan 50mg tablet PO SCH (08:29)
[2018-05-17] MEDS: folic acid 1mg tablet PO SCH (08:29)
[2018-05-17] MEDS: lactobacillus rhamnosus 10,000 MMU CELLS/CAPSULE PO SCH ×2 (08:29→19:42)
[2018-05-17] MEDS: pantoprazole 40mg Tablet.DR PO SCH (08:29)
[2018-05-17] MEDS: apixaban 5mg tablet PO SCH ×2 (08:29→19:42)
[2018-05-17] MEDS: atorvastatin 20mg tablet PO SCH (08:29)
[2018-05-17] MEDS: metoprolol tartrate 25mg tablet PO SCH ×2 (08:29→19:42)
[2018-05-17] MEDS: lactose-reduced food (Ensure Enlive) - 237ml bottle PO SCH ×3 (09:00→18:00)
[2018-05-17 11:00] VITALS: BP 127/66
[2018-05-17 15:00] VITALS: BP 133/65
[2018-05-17 18:00] VITALS: BP 110/62
[2018-05-17 22:00] VITALS: BP 141/82
[2018-05-18 02:00] VITALS: BP 126/62
[2018-05-18] MEDS: clindamycin 600mg/D5W 50ml 50 ML IV SCH ×4 (02:31→19:45)
[2018-05-18] MEDS: polyvinyl alcohol ophthalmic drops 15ml bottle EACHEYE SCH ×6 (04:00→19:45)
[2018-05-18 06:00] VITALS: BP 141/63
[2018-05-18] MEDS: metoprolol tartrate 25mg tablet PO SCH ×2 (07:38→19:43)
[2018-05-18] MEDS: atorvastatin 20mg tablet PO SCH (07:39)
[2018-05-18] MEDS: pantoprazole 40mg Tablet.DR PO SCH (07:39)
[2018-05-18] MEDS: multivitamins, therapeutics tablet PO SCH (07:39)
[2018-05-18] MEDS: vitamin D (cholecalciferol) 1,000 unit tablet PO SCH (07:39)
[2018-05-18] MEDS: folic acid 1mg tablet PO SCH (07:39)
[2018-05-18] MEDS: lactobacillus rhamnosus 10,000 MMU CELLS/CAPSULE PO SCH ×2 (07:39→19:43)
[2018-05-18] MEDS: predniSONE 20 mg tablet PO SCH (07:39)
[2018-05-18] MEDS: losartan 50mg tablet PO SCH (07:39)
[2018-05-18] MEDS: furosemide 40mg tablet PO SCH (07:39)
[2018-05-18] MEDS: apixaban 5mg tablet PO SCH ×2 (07:39→19:43)
[2018-05-18] MEDS: CefTRIAXone 2gm/D5W 50ml 50 ML IV SCH (07:40)
[2018-05-18] MEDS: K and/or MAG REPLACEMENT MC SCH (07:45)
[2018-05-18] MEDS: lactose-reduced food (Ensure Enlive) - 237ml bottle PO SCH ×3 (08:00→19:52)
[2018-05-18 11:00] VITALS: BP 132/69
[2018-05-18] MEDS: nystatin 500,000 unit/5ML UD oral suspension PO SCH ×2 (14:41→21:18)
[2018-05-18 15:00] VITALS: BP 119/89
[2018-05-18 19:00] VITALS: BP 132/69
[2018-05-18 23:00] VITALS: BP 113/56
[2018-05-19] MEDS: clindamycin 600mg/D5W 50ml 50 ML IV SCH ×2 (02:33→08:18)
[2018-05-19 03:00] VITALS: BP 137/67
[2018-05-19] MEDS: polyvinyl alcohol ophthalmic drops 15ml bottle EACHEYE SCH ×3 (04:00→08:00)
[2018-05-19 06:00] VITALS: BP 147/71
[2018-05-19 06:10] LABS: BASOPHILS # (AUTO) 0.1 X10'3 (0-0.2); BASOPHILS % (AUTO) 0.3 % (0-1); EOSINOPHILS # (AUTO) 0.6 X10'3 (0-0.9); EOSINOPHILS % (AUTO) 3.1 % (0-6); HEMOGLOBIN 13.1 g/dl (14.0-17.9); LYMPHOCYTES % (AUTO) 15.2 % (21-51); MEAN CORPUSCULAR HEMOGLOBIN 30.3 PG (27.0-31.0); MEAN CORPUSCULAR HGB CONC 32.8 % (33.0-36.5); MEAN CORPUSCULAR VOLUME 92.4 FL (78-98); MEAN PLATELET VOLUME 9.5 FL (7.4-10.4); MONOCYTES # (AUTO) 1.7 X10'3 (0-0.9); MONOCYTES % (AUTO) 8.7 % (2-12); NEUTROPHILS # (AUTO) 14.4 X10'3 (1.8-7.7); NEUTROPHILS % (AUTO) 72.7 % (42-75); PLATELET COUNT 301 X10'3 (140-440); RED BLOOD COUNT 4.33 X10'6 (4.70-6.10); RED CELL DISTRIBUTION WIDTH 13.7 % (11.5-14.5); WHITE BLOOD COUNT 19.8 X10'3 (4.5-11.0)
[2018-05-19 06:19] LABS: ALBUMIN 2.1 G/DL (3.4-5.0); ANION GAP 4 (8-16); BLOOD UREA NITROGEN 27 MG/DL (7-18); BUN/CREATININE RATIO 28.7 (5.4-32.0); CALCIUM 7.1 MG/DL (8.5-10.1); CHLORIDE 103 MMOL/L (99-107); CREATININE 0.94 MG/DL (0.60-1.10); GLUCOSE 94 MG/DL (70-104); POTASSIUM 3.1 MMOL/L (3.5-5.1); SODIUM 141 MMOL/L (135-145); TOTAL CARBON DIOXIDE 34.5 MMOL/L (24-32); eGFR 76 ML/MIN
[2018-05-19] MEDS: losartan 50mg tablet PO SCH (08:20)
[2018-05-19] MEDS: lactobacillus rhamnosus 10,000 MMU CELLS/CAPSULE PO SCH (08:20)
[2018-05-19] MEDS: apixaban 5mg tablet PO SCH (08:20)
[2018-05-19] MEDS: folic acid 1mg tablet PO SCH (08:21)
[2018-05-19] MEDS: furosemide 40mg tablet PO SCH (08:21)
[2018-05-19] MEDS: atorvastatin 20mg tablet PO SCH (08:21)
[2018-05-19] MEDS: metoprolol tartrate 25mg tablet PO SCH (08:22)
[2018-05-19] MEDS: predniSONE 20 mg tablet PO SCH (08:22)
[2018-05-19] MEDS: nystatin 500,000 unit/5ML UD oral suspension PO SCH (08:22)
[2018-05-19] MEDS: multivitamins, therapeutics tablet PO SCH (08:23)
[2018-05-19] MEDS: pantoprazole 40mg Tablet.DR PO SCH (08:23)
[2018-05-19] MEDS: vitamin D (cholecalciferol) 1,000 unit tablet PO SCH (08:23)
[2018-05-19] MEDS: lactose-reduced food (Ensure Enlive) - 237ml bottle PO SCH (08:26)
[2018-05-19] MEDS ORDERED: potassium Cl 20 mEq SR tablet PO STA (09:03)
[2018-05-19] MEDS: CefTRIAXone 2gm/D5W 50ml 50 ML IV SCH (09:46)
== END 2018-05-19 11:05 | DRG 871 ==
LOC: ER 21:17 → ED HOLD 05-07 02:58 → CMPBEDREQ 05-07 04:12 → SUR 3N 05-07 04:15 → PCU 3S 05-12 14:47
PROVIDERS: ADMIT Family Medicine; ATTEND Family Medicine
PROC: 3E02340 Introduction of Influenza Vaccine into Muscle, Percutaneous Approach (ICD-10-PCS; principal; 2018-05-07)
PROC: 5A09357 Assistance with Respiratory Ventilation, Less than 24 Consecutive Hours, Continuous Positive Airway Pressure (ICD-10-PCS; 2018-05-13)
DX: A40.0 Sepsis due to streptococcus, group A (principal); I21.A1 Myocardial infarction type 2; J96.00 Acute respiratory failure, unspecified whether with hypoxia or hypercapnia; J18.9 Pneumonia, unspecified organism; E43 Unspecified severe protein-calorie malnutrition; I50.33 Acute on chronic diastolic (congestive) heart failure; L03.115 Cellulitis of right lower limb; J44.1 Chronic obstructive pulmonary disease with (acute) exacerbation; G93.40 Encephalopathy, unspecified; J44.0 Chronic obstructive pulmonary disease with (acute) lower respiratory infection; N17.9 Acute kidney failure, unspecified; B37.9 Candidiasis, unspecified; D64.9 Anemia, unspecified; E87.6 Hypokalemia; G47.33 Obstructive sleep apnea (adult) (pediatric); I11.0 Hypertensive heart disease with heart failure; I25.10 Atherosclerotic heart disease of native coronary artery without angina pectoris; I48.91 Unspecified atrial fibrillation; T38.0X5A Adverse effect of glucocorticoids and synthetic analogues, initial encounter; Z66 Do not resuscitate; G89.29 Other chronic pain; M54.9 Dorsalgia, unspecified; E86.0 Dehydration; H04.129 Dry eye syndrome of unspecified lacrimal gland; R44.1 Visual hallucinations; Z23 Encounter for immunization; I25.2 Old myocardial infarction; Z95.5 Presence of coronary angioplasty implant and graft; Z90.79 Acquired absence of other genital organ(s); Z88.0 Allergy status to penicillin; Z88.6 Allergy status to analgesic agent; Z88.1 Allergy status to other antibiotic agents; Z79.82 Long term (current) use of aspirin; Z79.899 Other long term (current) drug therapy; Z85.46 Personal history of malignant neoplasm of prostate; Z87.891 Personal history of nicotine dependence; Z86.718 Personal history of other venous thrombosis and embolism; Z68.31 Body mass index [BMI] 31.0-31.9, adult; W55.01XA Bitten by cat, initial encounter; Y93.89 Activity, other specified; Y99.8 Other external cause status; Y92.89 Other specified places as the place of occurrence of the external cause
CPT/HCPCS: 36415; 36600; 70544; 70551; 71045; 73560; 73590; 80048; 80053; 80061; 81001; 82140; 82803; 83605; 83735; 84443; 84484; 85018; 85025; 85610; 85651; 85730; 86140; 87040; 87070; 87077; 87186; 92616; 93005; 93306; 93971; 94640; 94760; 96365; 96375; 97110; 97116; 97162; 97530; 99285; G0378; J0696; J1644; J1650; J1940; J2060; J2270; J2405; J2920; J2930; J3370; J3411; J3490; J7030; J7512

== ENCOUNTER 2018-08-06 10:14 | Emergency (ER) | payer OTHER ==
[~2018-08-06] VITALS: Ht 175.3 cm; Wt 98.6 kg
[~2018-08-06 10:14] MED LIST changes: -AMLO5TAB PO; -NAPR375T5 PO; +PRAV80TA3 PO
[2018-08-06] MEDS ORDERED: aspirin 325mg tablet PO ONE (11:35)
[2018-08-06 12:01] VITALS: BP 139/88
== END 2018-08-06 12:02 | disposition home or self-care (01) ==
LOC: ER 10:15
DX: R60.0 Localized edema (principal); I25.10 Atherosclerotic heart disease of native coronary artery without angina pectoris; I10 Essential (primary) hypertension; I25.2 Old myocardial infarction; G89.29 Other chronic pain; Z86.718 Personal history of other venous thrombosis and embolism; Z98.890 Other specified postprocedural states; Z88.0 Allergy status to penicillin; Z88.5 Allergy status to narcotic agent; Z79.82 Long term (current) use of aspirin; Z79.899 Other long term (current) drug therapy
CPT/HCPCS: 93971; 99284